=== PATIENT | female | born 1965 | race Caucasian/White ===

== ENCOUNTER 2017-03-15 18:32 | Emergency (ER) | payer MEDICARE ==
[~2017-03-15] VITALS: Ht 160 cm; Wt 77.1 kg
--- NOTE | ~2017-03-15 | CT4 ---
[facility] A Service of [facility] RADIOLOGY TEXT RESULTS PATIENT: GRACE FERRARO LOCATION: [facility] : 65 UNIT #: [id number] AGE: [address]: Emmanuel Gee MD SEX: F ORDER DR: [id number] [facility] [address] [place], [place] [address] [id number] E MR#: [id number] [facility] #: [id number] NAME: GRACE FERRARO. : 1965 SEX: F STUDY DATE/TIME: 03/15/2017 20:44 UNIT: [facility] ROOM: STUDY DESCRIPTION: CT Abd and Pelv Wo Cont Attending Physician: Emmanuel Gee M.D. Ordering Physician: Emmanuel Gee M.D. Primary Care Physician: Aguila Austin M.D. MEDICAL IMAGING REPORT This report is preliminary unless electronic signature is present EXAM CT abdomen and pelvis without contrast 03/15/2017. HISTORY 51-year-old female with suprapubic abdominal pain for 2 weeks. Unable to urinate for [address] abdomen, pelvis 01/25/2010. TECHNIQUE Helical scan performed through the abdomen and pelvis without oral or IV contrast. Coronal and sagittal reformatted images. This CT exam was performed with one or more of the following radiation dose reduction techniques: automatic exposure control, adjustment of mA and/or kV according to patient size, and iterative reconstruction. FINDINGS Visualized lung bases are unremarkable. The liver, spleen, pancreas, both adrenal glands are within normal limits. Gallbladder surgically absent. Multiple nonobstructing bilateral intrarenal calculi. There is a 5 mm proximal right ureteral stone just distal to the ureteropelvic junction. No significant right-sided hydronephrosis. Abdominal aorta normal in course and caliber. Small bowel is unremarkable without obstruction. Appendix is normal. Colon unremarkable. No free fluid or free air. Urinary bladder unremarkable. Uterus surgically absent. No free pelvic fluid. No acute bony abnormality. IMPRESSION [facility] A Service of [facility] RADIOLOGY TEXT RESULTS PATIENT: GRACE FERRARO LOCATION: [facility] #: [id number] : 65 UNIT #: [id number] AGE: [address]: Emmanuel Gee MD SEX: F ORDER DR: 1. 5 mm proximal right ureteral stone just distal to the ureteropelvic junction. No significant hydronephrosis. 2. Multiple nonobstructing bilateral intrarenal calculi. 3. Normal appendix. 4. Cholecystectomy and hysterectomy. Dictated by... Alexandro Pringle M.D. THIS IS AN ELECTRONICALLY VERIFIED REPORT Alexandro Pringle M.D. at 03/16/2017 3:05 PM SAI/chandler TD: 03/16/2017 11:11 JOB #: [id number] MEDICAL IMAGING REPORT Page 1 of 1 COPY
[~2017-03-15 18:32] MED LIST: ALBUTEROL MININEB; ALBUTEROL17 GM INH; ALLEGRA; AMBIEN CR; AMITRIPTYLINE H25 MG; BENADRYL25 MG PO; CELEBREX PO; CELEXA; CELEXA PO; CHANTIX PO; DYAZIDE 37.5/251 CAP PO; EC-NAPROSYN500 MG PO; FLEXERIL PO; GABAPENTIN300 MG; HYDROCODONE-APA1 T50; K-DUR20 ME1; KETOPROFEN PO; KLONOPIN; LAMICTAL PO; LASIX20 MG; LORTAB 10/500 T1 TAB; LORTAB 7.5-5001 TAB PO; MAGNESIUM GLUC200 MG; MEDROL PO; MELATONIN3 MG PO; MULTIPLE VITAMI1 T10; NORCO 7.5/325 T1 TAB PO; OMEPRAZOLE40 MG; PERCOCET5/325 PO; PHENERGAN PO; PHENERGAN25 MG PO; PRILOSEC PO; REMERON PO; REMERON30 MG PO; SPIRIVA18 MCG; SPIRIVA18 MCG INH; SYMBICORT80 INH; TRAMADOL HCL50 M1; VICODIN; VITAMIN C500 M1; VITAMIN D400 UNI1; VIVELLE1 PATCH.B1 TD; XANAX2 MG; ZANAFLEX; ZANAFLEX PO; ZYRTEC PO
[2017-03-15 20:46] LABS: BASOPHIL# 0.1 X10e3 (0-0.3); BASOPHIL% 0.7 % (0-2.5); EOSINOPHIL# 0.1 X10e3 (0-0.7); EOSINOPHIL% 1.3 % (0.0-7.0); HEMATOCRIT 43.6 % (35.0-45.0); HEMOGLOBIN 14.8 gm/dL (12.0-16.0); LYMPHOCYTE# 3.4 X10e3 (1.0-3.5); LYMPHOCYTE% 36.2 % (17.0-45.0); MEAN CELL VOLUME 88.7 FL (83-96); MEAN CORPUSCULAR HEMOGLOBIN 30.2 PG (28-34); MEAN CORPUSCULAR HGB CONC 34.1 g/dL (30-36); MEAN PLATELET VOLUME 8.4 FL (6.5-11.5); MONOCYTE# 0.3 X10e3 (0-1.0); MONOCYTE% 3.3 % (3.0-12.0); NEUTROPHIL# 5.5 X10e3 (1.5-7.1); NEUTROPHIL% 58.5 % (40-75); PLATELET COUNT 254 X10e3 (140-420); RED BLOOD COUNT 4.92 X10e (3.90-5.30); RED CELL DISTRIBUTION WIDTH 14.1 % (11.0-15.5); WHITE BLOOD COUNT 9.3 X10e3 (4.0-10.5)
[2017-03-15 20:47] LABS: DIFF IND NO
[2017-03-15 21:13] LABS: BILIRUBIN, DIRECT 0.1 mg/dL (0.0-0.2); BILIRUBIN,INDIRECT 0.4 mg/dL (0.0-0.9); BILIRUBIN,TOTAL 0.5 mg/dL (0.2-2.0); BUN/CREATININE RATIO 13.33; CALCIUM SERUM 9.4 mg/dL (8.4-10.2); CREATININE SERUM 0.9 mg/dL (0.6-1.4); GLOM FILT RATE Estimated 74.1 mL/min (>60); POTASSIUM 3.8 mmol/L (3.5-5.1); PROTEIN TOTAL SERUM 8.2 g/dL (6.0-8.3)
[2017-03-15 21:21] LABS: URINE SOURCE CLEAN CATCH
[2017-03-15 21:32] LABS: URINE APPEARANCE CLEAR; URINE BILIRUBIN NEG (NEG); URINE BLOOD 2+ (NEG); URINE COLOR YELLOW; URINE GLUCOSE NEG (NEG); URINE KETONE NEG (NEG); URINE LEUKOCYTE ESTERASE 1+ (NEG); URINE NITRATE NEG (NEG); URINE PH 6.5 (5-8); URINE PROTEIN NEG (NEG); URINE SPECIFIC GRAVITY 1.024 (1.003-1.035)
[2017-03-15 21:35] LABS: CULTURE INDICATED? YES; URBCS1 AUWI 25-50 /[HPF] (0-2); URINE BACTERIA AUWI 2+ (NEGATIVE); URINE SQUAMOUS EPITHELIAL CELL FEW /[HPF]
== END 2017-03-15 22:35 | disposition home or self-care (01) ==
LOC: CED 18:32
PROVIDERS: Emergency Medicine
DX: N20.0 Calculus of kidney (principal); F31.9 Bipolar disorder, unspecified; F41.9 Anxiety disorder, unspecified; J44.9 Chronic obstructive pulmonary disease, unspecified; F17.210 Nicotine dependence, cigarettes, uncomplicated
CPT/HCPCS: 36415; 74176; 80048; 80076; 81003; 83690; 85025; 87086; 96361; 96374; 99284; J1885